=== PATIENT | male | born 1995 | race Caucasian/White ===

== ENCOUNTER 2020-02-19 21:38 | Emergency (ER) | payer SELFPAY ==
[~2020-02-19] VITALS: Ht 185.4 cm; Wt 95.7 kg
[2020-02-19 21:41] VITALS: BP 111/67
--- NOTE | 2020-02-19 21:44 | NUR ---
PT AMBULATED TO BED #5. NEGATIVE COVID-19 SCREENING. PT WEARING A MASK
[2020-02-19 21:49] VITALS: BP 111/67
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
--- NOTE | 2020-02-19 22:04 | NUR ---
PATIENT LEFT WITHOUT BEING SEEN BY DR. KELLY. NO FURTHER CARE PROVIDED FOR PATIENT.
== END 2020-02-19 22:04 | disposition left against medical advice (07) ==
LOC: MED 21:38
DX: M79.645 Pain in left finger(s) (principal); Z53.21 Procedure and treatment not carried out due to patient leaving prior to being seen by health care provider

== ENCOUNTER 2021-04-18 20:41 | Emergency (ER) | payer OTHER ==
[~2021-04-18] VITALS: Ht 182.9 cm; Wt 90.7 kg
[2021-04-18 20:49] VITALS: BP 120/61
[2021-04-18] MEDS ORDERED: LIDOCAINE/EPI 1% 1:100000 20 ML VIAL INJ ONE (22:20)
[2021-04-18] MEDS ORDERED: BACITRACIN OINT 500 UNITS/GM PKT TP ONE ×2 (22:45→22:50)
[2021-04-18 23:05] VITALS: BP 120/61
== END 2021-04-18 23:05 | disposition home or self-care (01) ==
LOC: MED 20:41
DX: S61.211A Laceration without foreign body of left index finger without damage to nail, initial encounter (principal); W26.8XXA Contact with other sharp object(s), not elsewhere classified, initial encounter; Y93.89 Activity, other specified; Y92.89 Other specified places as the place of occurrence of the external cause; Y99.8 Other external cause status
CPT/HCPCS: 12001; 90471; 90715; 99283; J2001

== ENCOUNTER 2022-01-06 05:10 | Emergency (ER) | payer OTHER ==
[~2022-01-06] VITALS: Ht 188 cm; Wt 82.2 kg
[2022-01-06 05:31] VITALS: BP 125/73
--- NOTE | 2022-01-06 05:45 | NUR ---
pt taken to bed 12. placed in gown and given blanket.
[2022-01-06 05:53] LABS: BASOPHILS % (AUTO) 0.1 % (0.0-2.0); HEMATOCRIT 40.3 % (36-52); HEMOGLOBIN 13.8 g/dL (12.0-18.0); LYMPHOCYTES # (AUTO) 0.7 K/uL (2.0-11.5); LYMPHOCYTES % (AUTO) 4.3 % (20.5-51.1); MEAN CORPUSCULAR HEMOGLOBIN 30 pg (27-31); MEAN CORPUSCULAR HGB CONC 34 g/dL (33-37); MONOCYTES # (AUTO) 0.6 K/uL (0.8-1.0); MONOCYTES % (AUTO) 3.7 % (1.7-9.3); NEUTROPHILS # (AUTO) 15.2 K/uL (1.8-7.7); NEUTROPHILS % (AUTO) 91.9 % (42.2-75.2); PLATELET COUNT (AUTO) 206 K/uL (140-450); RED BLOOD CELL COUNT(AUTO) 4.53 MIL/uL (4.20-6.10); RED CELL DISTRIBUTION WIDTH 13.3 % (11.6-13.7); WHITE BLOOD COUNT (AUTO) 16.6 K/uL (4.8-10.8)
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
[2022-01-06 06:25] LABS: ALBUMIN 3.4 g/dL (3.4-5.0); ANION GAP 11.2 (8-16); CREATININE 1.2 mg/dL (0.6-1.3); POTASSIUM 3.2 mmol/L (3.5-5.1); TOTAL BILIRUBIN 0.9 mg/dL (0.0-1.0)
[2022-01-06] MEDS ORDERED: HYDROcodone/APAP 5/325 MG 1 TAB TAB PO ONE (06:45)
[2022-01-06] MEDS ORDERED: DICYCLOMINE HCL LIQUID 20 MG, ALUMINUM HYD/MAG/SIMETHICONE 30 ML, LIDOCAINE VISCOUS 2% ... PO ONE ×3 (06:45)
[2022-01-06] MEDS ORDERED: DICYCLOMINE HCL LIQUID 10 MG/5 ML UDC ONE (06:52)
[2022-01-06] MEDS ORDERED: ALUMINUM HYD/MAG/SIMETHICONE 30 ML UDC ONE (06:52)
--- NOTE | 2022-01-06 07:13 | NUR ---
REPORT RECEIVED FROM MARIANO SANTIAGO FOR CONTINUITY OF CARE. PT IN BED RESTING, ON ROOM AIR. WILL CONTINUE TO MONITOR
--- NOTE | 2022-01-06 07:13 | NUR ---
Pt report given to JACK dotson. Transfer of care at this time.
--- NOTE | 2022-01-06 07:35 | NUR ---
MD BAXTER AT PT BEDSIDE FOR RE-EVALUATION.
[2022-01-06] MEDS ORDERED: AMOX1TAB8 PO (07:52)
[2022-01-06] MEDS ORDERED: AMOXIL/CLAVULANATE 875/125 MG 1 TAB PO SCH (07:52)
[2022-01-06 08:28] VITALS: BP 124/72
--- NOTE | 2022-01-06 08:29 | NUR ---
Patient discharged with v/s stable. Written and verbal after care instructions given FOR COMMUNITY-ACQUIRED PNEUMONIA and explained. Patient alert, oriented and verbalized understanding of instructions. Ambulatory with steady gait. All questions addressed prior to discharge. ID band removed. Patient advised to follow up with PMD. Rx of AUGMENTIN given. Patient educated on indication of medication including possible reaction and side effects. Opportunity to ask questions provided and answered.
[2022-01-06 17:28] LABS: BILIRUBIN,URINE 2+ (NEGATIVE); BLOOD, URINE 3+ (NEGATIVE); COLOR,URINE YELLOW (YELLOW); LEUKOCYTE ESTERASE ,URINE TRACE (NEGATIVE); NITRITE, URINE POSITIVE (NEGATIVE); PH,URINE 7.5 (5.0-9.0); UGLUCOSE TRACE (NEGATIVE)
[2022-01-06 17:41] LABS: APPEARANCE,URINE HAZY (CLEAR)
[2022-01-06 18:13] LABS: RBC,URINE 0-5 /HPF (0-5); WBC,URINE 0-5 /HPF (0-5)
== END 2022-01-06 08:29 | disposition home or self-care (01) ==
LOC: MED 05:10
DX: R04.2 Hemoptysis (principal); J18.1 Lobar pneumonia, unspecified organism; F10.10 Alcohol abuse, uncomplicated; F17.210 Nicotine dependence, cigarettes, uncomplicated
CPT/HCPCS: 36415; 71045; 80053; 81001; 83690; 85025; 99284; Q0092

== ENCOUNTER 2022-04-13 16:16 | Emergency (ER) | payer OTHER ==
[~2022-04-13] VITALS: Ht 182.9 cm; Wt 90.7 kg
[~2022-04-13 16:16] MED LIST: AMOX1TAB8 PO
[2022-04-13 16:18] VITALS: BP 113/83
--- NOTE | 2022-04-13 16:30 | NUR ---
DR SCHAEFER BESIDE CHAIR EXAMINING PT
[2022-04-13] MEDS ORDERED: KETOROLAC 30 MG/ML VIAL IM ONE (16:45)
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
[2022-04-13] MEDS ORDERED: IBUP-2213 PO (17:22)
--- NOTE | 2022-04-13 17:25 | NUR ---
PATIENT REFUSING XRAY
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
== END 2022-04-13 17:36 ==
LOC: MED 16:16
DX: S93.402A Sprain of unspecified ligament of left ankle, initial encounter (principal); Z79.1 Long term (current) use of non-steroidal anti-inflammatories (NSAID); Z79.2 Long term (current) use of antibiotics; X58.XXXA Exposure to other specified factors, initial encounter; Y93.89 Activity, other specified; Y92.89 Other specified places as the place of occurrence of the external cause; Y99.8 Other external cause status
CPT/HCPCS: 96372; 99283; J1885

== ENCOUNTER 2024-06-15 08:32 | Emergency (ER) | payer SELFPAY ==
[~2024-06-15] VITALS: Ht 185.4 cm; Wt 85.8 kg
[~2024-06-15 08:32] MED LIST changes: +IBUP-2213 PO
[2024-06-15 08:39] VITALS: BP 151/91; PULSE 99; RESP 19; TEMP 99.5; O2SAT 100
--- NOTE | 2024-06-15 08:45 | NUR ---
AT EVALUATING PT.
--- NOTE | 2024-06-15 09:13 | NUR ---
URINAL PROVIDED TO THE PT FOR UA SAMPLE.
[2024-06-15 09:32] LABS: BASOPHILS % (AUTO) 0.9 % (0.0-2.0); EOSINOPHILS # (AUTO) 0.2 K/uL (0-0.4); HEMATOCRIT 38.5 % (36-52); HEMOGLOBIN 12.8 g/dL (12.0-18.0); LYMPHOCYTES # (AUTO) 1.7 K/uL (2.0-11.5); LYMPHOCYTES % (AUTO) 38.5 % (20.5-51.1); MEAN CORPUSCULAR HEMOGLOBIN 30 pg (27-31); MEAN CORPUSCULAR HGB CONC 33 g/dL (33-37); MEAN CORPUSCULAR VOLUME 89.1 fL (80-94); MONOCYTES # (AUTO) 0.5 K/uL (0.8-1.0); MONOCYTES % (AUTO) 10.5 % (1.7-9.3); NEUTROPHILS % (AUTO) 46.1 % (42.2-75.2); PLATELET COUNT (AUTO) 175 K/uL (140-450); RED BLOOD CELL COUNT(AUTO) 4.32 MIL/uL (4.20-6.10); RED CELL DISTRIBUTION WIDTH 16.1 % (11.6-13.7); WHITE BLOOD COUNT (AUTO) 4.3 K/uL (4.8-10.8)
[2024-06-15 09:48] LABS: ANION GAP 11.8 (8-16); CALCIUM 8.6 mg/dL (8.5-10.1); CARBON DIOXIDE 27.5 mmol/L (21-32); CREATININE 1.1 mg/dL (0.6-1.3); POTASSIUM 3.3 mmol/L (3.5-5.1)
[2024-06-15 09:52] LABS: ACETAMINOPHEN < 0.5 ug/ml (10-30)
[2024-06-15 10:05] LABS: ALCOHOL, BLOOD < 3 mg/dL (<10); SALICYLATE < 2.8 mg/dL (2.8-20.0)
[2024-06-15 10:09] LABS: CANNABINOID, URINE POSITIVE ng/mL (NEG <=50)
[2024-06-15 10:10] LABS: AMPHETAMINE, URINE NEGATIVE ng/ml (NEG <=1000); BARBITURATE, URINE NEGATIVE ng/ml (NEG <=200); BENZODIAZEPINE, URINE NEGATIVE ng/mL (NEG <=200); COCAINE, URINE NEGATIVE ng/mL (NEG <=300); OPIATE, URINE NEGATIVE ng/mL (NEG <=2000); PHENCYCLIDINE SCREEN,URINE NEGATIVE ng/mL (NEG <=25)
[2024-06-15] MEDS: KETOROLAC 30 MG/ML VIAL IVP ONE (10:11)
[2024-06-15] MEDS: BOWEL EVACUANT DRINK 4,000 ML PDS PO ONE (11:25)
--- NOTE | 2024-06-15 11:46 | NUR ---
PT OOB TO THE RESTROOM.
--- NOTE | 2024-06-15 12:06 | NUR ---
PT HAD BM AND PASSED FB.
--- NOTE | 2024-06-15 12:07 | NUR ---
MADE AWARE THAT THE PT PASSED THE FB AFTER A BM.
[2024-06-15 12:26] VITALS: BP 130/75; PULSE 69; RESP 16; TEMP 99.5; O2SAT 97
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
== END 2024-06-15 12:26 | disposition left against medical advice (07) ==
LOC: MED 08:32
DX: T18.5XXA Foreign body in anus and rectum, initial encounter (principal); F12.90 Cannabis use, unspecified, uncomplicated; Z79.1 Long term (current) use of non-steroidal anti-inflammatories (NSAID); Z79.2 Long term (current) use of antibiotics; W44.8XXA Other foreign body entering into or through a natural orifice, initial encounter; Y93.89 Activity, other specified; Y92.89 Other specified places as the place of occurrence of the external cause; Y99.8 Other external cause status
CPT/HCPCS: 36415; 74177; 80048; 80305; 85025; 96372; 99285; G0480; G0482; J1885; Q9967

== ENCOUNTER 2024-07-17 10:36 | Emergency (ER) | payer SELFPAY ==
[~2024-07-17] VITALS: Ht 185.4 cm; Wt 90.7 kg
[2024-07-17 10:49] VITALS: BP 128/87; PULSE 74; RESP 18; TEMP 98.2; O2SAT 98
[2024-07-17] MEDS ORDERED: ELIMC TP (11:04)
== END 2024-07-17 11:17 | disposition home or self-care (01) ==
LOC: MED 10:36
DX: B86 Scabies (principal); Z79.2 Long term (current) use of antibiotics; Z79.899 Other long term (current) drug therapy
CPT/HCPCS: 99282

== ENCOUNTER 2024-07-24 10:53 | Emergency (ER) | payer SELFPAY ==
[~2024-07-24] VITALS: Ht 193 cm; Wt 90.7 kg
[~2024-07-24 10:53] MED LIST changes: +ELIMC TP
[2024-07-24 10:56] VITALS: BP 131/68; PULSE 65; RESP 16; TEMP 97.5; O2SAT 100
[2024-07-24] MEDS ORDERED: IVER3TAB2 PO (12:16)
[2024-07-24] MEDS ORDERED: ELIMC TP (12:16)
[2024-07-24 12:26] VITALS: BP 131/68; PULSE 65; RESP 16; TEMP 97.5; O2SAT 100
== END 2024-07-24 12:21 | disposition home or self-care (01) ==
LOC: MED 10:53
DX: B86 Scabies (principal); Z76.0 Encounter for issue of repeat prescription; Z79.899 Other long term (current) drug therapy
CPT/HCPCS: 99281